=== PATIENT | male | born 1960 | race Caucasian/White ===

== ENCOUNTER 2020-10-30 10:37 | Emergency (ER) | payer BC ==
[~2020-10-30] VITALS: Ht 172.7 cm; Wt 87.1 kg
[2020-10-30] MEDS ORDERED: SODIUM CHLORIDE 0.9% 1000ML 1,000 ML IV SCH (12:00)
[2020-10-30] MEDS ORDERED: SODIUM CHLORIDE 0.9% 1000ML 1,000 ML ONE (12:04)
[2020-10-30 13:10] VITALS: BP 108/70
== END 2020-10-30 13:06 | disposition home or self-care (01) ==
LOC: FSED 11:42
DX: I95.1 Orthostatic hypotension (principal); R42 Dizziness and giddiness; R51.9 Headache, unspecified
CPT/HCPCS: 70450; 71046; 80053; 80307; 81003; 82553; 84484; 85025; 93005; 99284; J7030